=== PATIENT | male | born 1940 | race Caucasian/White ===

== ENCOUNTER 2016-06-26 12:56 | Inpatient (IN) | payer MEDICARE, BC ==
[~2016-06-26] VITALS: Ht 175.3 cm; Wt 86.2 kg
[~2016-06-26 12:56] MED LIST: ALFU10TA10 PO; ATOR80TA PO; BACL10TA PO; CARV3.122 PO; LEVO100T9 PO; OXCA300T PO; TICA90TA PO
[2016-06-26 14:01] LABS: BASOPHILS % (AUTO) 0.8 % (0.0-2.0); DIFF TOTAL % 100 %; EOSINOPHILS # (AUTO) 0.2 /CMM (0.0-0.7); HEMATOCRIT 38 % (39-51); HEMOGLOBIN 12.7 g/dL (13.5-17.5); LYMPHOCYTES # (AUTO) 1.2 /CMM (0.8-4.8); LYMPHOCYTES % (AUTO) 22.1 % (20.0-44.0); MEAN CORPUSCULAR HEMOGLOBIN 32 PG (26.0-33.0); MEAN CORPUSCULAR HGB CONC 33 g/dl (31.0-36.0); MEAN CORPUSCULAR VOLUME 97 fL (80-96); MONOCYTES # (AUTO) 0.3 /CMM (0.1-1.30); MONOCYTES % (AUTO) 6.5 % (2.0-12.0); NEUTROPHILS # (AUTO) 3.5 /CMM (1.8-8.9); NEUTROPHILS % (AUTO) 67.6 % (43.0-81.0); PLATELET COUNT (AUTO) 193 /CMM (150-450); RED BLOOD CELL COUNT(AUTO) 3.94 MIL/uL (4.5-6.0); WHITE BLOOD COUNT (AUTO) 5.2 K/uL (4.3-11.0)
[2016-06-26 14:14] LABS: ANION GAP 10 (5-14); CALCIUM, SERUM 9.3 mg/dL (8.5-10.1); CARBON DIOXIDE 30 mmol/L (21-32); CHLORIDE 101 mmol/L (98-107); GLUCOSE 114 mg/dL (74-106); POTASSIUM 3.8 mmol/L (3.5-5.1); SODIUM SERUM 138 mmol/L (136-145); UREA NITROGEN, BLOOD 24 mg/dL (7-18)
[2016-06-26 14:17] LABS: INR 0.98 (0.87-1.13); PROTHROMBIN TIME 10.3 SECS (9.5-12.7)
[2016-06-26 14:20] LABS: ALANINE AMINOTRANSFERASE 29 U/L (12-78); ALBUMIN 3.5 g/dL (3.4-5.0); ASPARTATE AMINOTRANSFERASE 23 U/L (15-37); BILIRUBIN,DIRECT 0.1 mg/dL (0.0-0.2); BILIRUBIN,TOTAL 0.3 mg/dL (0.2-1.0); INDIRECT BILIRUBIN 0.2 mg/dL (0.0-1.1); TOTAL PROTEIN, SERUM 8.2 g/dL (6.4-8.2)
[2016-06-26 14:22] LABS: TROPONIN I < 0.017 ng/mL (0.00-0.056)
[2016-06-26 14:51] LABS: LACTIC ACID 1.4 mmol/L (0.4-2.0)
[2016-06-26] MEDS ORDERED: VANCOMYCIN 1 GM in IV D5W 250 ML IV ONE (15:30)
[2016-06-26] MEDS ORDERED: hydrALAZINE HCL 25 MG TABLET PO PRN (15:30)
[2016-06-26] MEDS ORDERED: VANCOMYCIN 1 GM in IV D5W 250 ML IV SCH (16:30)
[2016-06-26] MEDS ORDERED: FEE PK DOSING 1 MIN EA MC ONE (17:27)
[2016-06-26 17:30] VITALS: BP 157/71
[2016-06-26] MEDS ORDERED: OXCARBAZEPINE 150 MG TABLET PO SCH (17:30)
[2016-06-26] MEDS ORDERED: IV NS 0.9% 1,000 ML IV PRN (17:31)
[2016-06-26] MEDS: CEFTRIAXONE 1 G in IV D5W 50 ML IV SCH (17:50)
[2016-06-26] MEDS: BACLOFEN (10 MG) 10 MG TABLET PO SCH (17:50)
[2016-06-26] MEDS: CARVEDILOL 3.125 MG TABLET PO SCH (17:52)
[2016-06-26] MEDS: TICAGRELOR 90 MG TABLET PO SCH (17:52)
[2016-06-26] MEDS ORDERED: HYDROCODONE/APAP 5/325MG 1 EACH TABLET PO PRN (18:00)
[2016-06-26] MEDS ORDERED: ZOLPIDEM TARTRATE 5 MG TABLET PO PRN (18:00)
[2016-06-26] MEDS ORDERED: ACETAMINOPHEN 325 MG TABLET PO PRN (18:00)
[2016-06-26] MEDS ORDERED: MAG HYDROX/AL HYDROX/SIMETH 30 ML UDC PO PRN (18:00)
[2016-06-26] MEDS ORDERED: ONDANSETRON HCL/PF 4 MG/2 ML VIAL IVP PRN (18:00)
[2016-06-26] MEDS ORDERED: MAGNESIUM HYDROXIDE 30 ML UDC PO PRN (18:00)
[2016-06-26] MEDS ORDERED: Z GUARD REMEDY 2 OZ OINT TP PRN (18:00)
[2016-06-26] MEDS ORDERED: SECONDARY IV SET 1 EA INFUS.SET MC ONE (18:22)
[2016-06-26] MEDS ORDERED: IV SET PRIMARY PUMP SET 1 EA INFUS.SET MC ONE (18:38)
[2016-06-26 20:00] VITALS: BP 105/55
[2016-06-26] MEDS ORDERED: Alfuzosin Hcl 10 MG PO SCH (20:00)
[2016-06-26] MEDS: OXCARBAZEPINE 150 MG TABLET PO SCH (23:33)
[2016-06-27] VITALS (7 sets, daily range): BP systolic 118–140; BP diastolic 56–68
[2016-06-27] MEDS ORDERED: SECONDARY IV SET 1 EA INFUS.SET MC ONE ×2 (05:54→17:03)
[2016-06-27] MEDS: VANCOMYCIN 1.25 GM in IV D5W 500 ML IV SCH ×2 (05:55→18:37)
[2016-06-27] MEDS: LEVOTHYROXINE SODIUM 100 MCG TABLET PO SCH (06:37)
[2016-06-27 07:33] LABS: CALCIUM, SERUM 8.5 mg/dL (8.5-10.1); PHOSPHORUS 2.9 mg/dL (2.5-4.9); POTASSIUM 3.9 mmol/L (3.5-5.1)
[2016-06-27 07:41] LABS: BASOPHILS # (AUTO) 0.1 /CMM (0.0-0.2); BASOPHILS % (AUTO) 1.4 % (0.0-2.0); DIFF TOTAL % 100 %; EOSINOPHILS # (AUTO) 0.2 /CMM (0.0-0.7); EOSINOPHILS % (AUTO) 4.2 % (0.0-6.0); HEMATOCRIT 34 % (39-51); HEMOGLOBIN 11.6 g/dL (13.5-17.5); LYMPHOCYTES # (AUTO) 1.4 /CMM (0.8-4.8); LYMPHOCYTES % (AUTO) 26.8 % (20.0-44.0); MEAN CORPUSCULAR HEMOGLOBIN 33 PG (26.0-33.0); MEAN CORPUSCULAR HGB CONC 34 g/dl (31.0-36.0); MEAN CORPUSCULAR VOLUME 97 fL (80-96); MONOCYTES # (AUTO) 0.4 /CMM (0.1-1.30); MONOCYTES % (AUTO) 8.1 % (2.0-12.0); NEUTROPHILS # (AUTO) 3.2 /CMM (1.8-8.9); NEUTROPHILS % (AUTO) 59.5 % (43.0-81.0); PLATELET COUNT (AUTO) 182 /CMM (150-450); RED BLOOD CELL COUNT(AUTO) 3.52 MIL/uL (4.5-6.0); WHITE BLOOD COUNT (AUTO) 5.3 K/uL (4.3-11.0)
[2016-06-27] MEDS: PANTOPRAZOLE 40 MG TABLET.DR PO SCH (08:20)
[2016-06-27] MEDS: BACLOFEN (10 MG) 10 MG TABLET PO SCH ×2 (08:20→17:14)
[2016-06-27] MEDS: OXCARBAZEPINE 150 MG TABLET PO SCH ×2 (08:24→22:54)
[2016-06-27] MEDS: TICAGRELOR 90 MG TABLET PO SCH ×2 (08:24→17:14)
[2016-06-27] MEDS: CARVEDILOL 3.125 MG TABLET PO SCH ×2 (08:25→17:14)
[2016-06-27] MEDS: CEFTRIAXONE 1 G in IV D5W 50 ML IV SCH (17:14)
[2016-06-27] MEDS: Z GUARD REMEDY 2 OZ OINT TP SCH (17:15)
[2016-06-27] MEDS: ATORVASTATIN 40 MG TABLET PO SCH (21:12)
[2016-06-27] MEDS ORDERED: PSEUDOEPHEDRINE HCL 30 MG TABLET ONE (23:04)
[2016-06-28] MEDS: PSEUDOEPHEDRINE HCL 30 MG TABLET PO PRN ×2 (00:04→10:01)
[2016-06-28 01:40] VITALS: BP 139/64
[2016-06-28 04:00] VITALS: BP 156/72
[2016-06-28 05:12] VITALS: BP 156/72
[2016-06-28 06:02] LABS: BASOPHILS # (AUTO) 0.1 /CMM (0.0-0.2); BASOPHILS % (AUTO) 0.8 % (0.0-2.0); DIFF TOTAL % 100 %; EOSINOPHILS # (AUTO) 0.3 /CMM (0.0-0.7); EOSINOPHILS % (AUTO) 3.8 % (0.0-6.0); HEMATOCRIT 35 % (39-51); HEMOGLOBIN 11.7 g/dL (13.5-17.5); LYMPHOCYTES # (AUTO) 1.6 /CMM (0.8-4.8); LYMPHOCYTES % (AUTO) 23.1 % (20.0-44.0); MEAN CORPUSCULAR HEMOGLOBIN 33 PG (26.0-33.0); MEAN CORPUSCULAR HGB CONC 34 g/dl (31.0-36.0); MEAN CORPUSCULAR VOLUME 97 fL (80-96); MONOCYTES # (AUTO) 0.5 /CMM (0.1-1.30); MONOCYTES % (AUTO) 7.2 % (2.0-12.0); NEUTROPHILS # (AUTO) 4.4 /CMM (1.8-8.9); NEUTROPHILS % (AUTO) 65.1 % (43.0-81.0); PLATELET COUNT (AUTO) 166 /CMM (150-450); RED BLOOD CELL COUNT(AUTO) 3.59 MIL/uL (4.5-6.0); WHITE BLOOD COUNT (AUTO) 6.8 K/uL (4.3-11.0)
[2016-06-28 06:21] LABS: CALCIUM, SERUM 8.5 mg/dL (8.5-10.1); PHOSPHORUS 3.2 mg/dL (2.5-4.9); POTASSIUM 4.1 mmol/L (3.5-5.1)
[2016-06-28] MEDS: VANCOMYCIN 1.25 GM in IV D5W 500 ML IV SCH (07:02)
[2016-06-28 08:00] VITALS: BP 141/70
[2016-06-28] MEDS: Z GUARD REMEDY 2 OZ OINT TP SCH ×2 (09:00→17:00)
[2016-06-28] MEDS: PANTOPRAZOLE 40 MG TABLET.DR PO SCH (10:00)
[2016-06-28] MEDS: LEVOTHYROXINE SODIUM 100 MCG TABLET PO SCH (10:01)
[2016-06-28] MEDS: TICAGRELOR 90 MG TABLET PO SCH ×2 (10:01→17:00)
[2016-06-28] MEDS: CARVEDILOL 3.125 MG TABLET PO SCH ×2 (10:01→17:00)
[2016-06-28] MEDS: OXCARBAZEPINE 150 MG TABLET PO SCH ×2 (10:02→23:33)
[2016-06-28] MEDS: BACLOFEN (10 MG) 10 MG TABLET PO SCH ×2 (10:02→17:00)
[2016-06-28 16:00] VITALS: BP 140/71
[2016-06-28] MEDS: CEFTRIAXONE 1 G in IV D5W 50 ML IV SCH (17:00)
[2016-06-28] MEDS ORDERED: VANCOMYCIN 1 GM in IV D5W 250 ML IV SCH (18:00)
[2016-06-28 20:00] VITALS: BP 137/73
[2016-06-28] MEDS: ATORVASTATIN 40 MG TABLET PO SCH (22:12)
[2016-06-29] MEDS ORDERED: CEFTRIAXONE 1 G in IV D5W 50 ML IV SCH ×2
[2016-06-29] MEDS ORDERED: CEFTRIAXONE 1 G VIAL ONE (00:27)
[2016-06-29] MEDS ORDERED: SECONDARY IV SET 1 EA INFUS.SET MC ONE ×2 (00:27→01:47)
[2016-06-29] MEDS ORDERED: IV SET PRIMARY PUMP SET 1 EA INFUS.SET MC ONE (00:27)
[2016-06-29] MEDS ORDERED: IV D5W 50 ML IV ONE (00:28)
[2016-06-29] MEDS ORDERED: IV NS 0.9% 250 ML IV ONE (00:28)
[2016-06-29] MEDS: VANCOMYCIN 1 GM in IV D5W 250 ML IV SCH ×2 (01:53→13:38)
[2016-06-29 04:00] VITALS: BP 128/65
[2016-06-29 04:50] VITALS: BP 128/65
[2016-06-29 07:09] LABS: CALCIUM, SERUM 8.4 mg/dL (8.5-10.1); CREATININE 0.9 mg/dL (0.6-1.3); POTASSIUM 3.6 mmol/L (3.5-5.1)
[2016-06-29] MEDS: PANTOPRAZOLE 40 MG TABLET.DR PO SCH (07:30)
[2016-06-29 08:00] VITALS: BP 106/57
[2016-06-29] MEDS: LEVOTHYROXINE SODIUM 100 MCG TABLET PO SCH (08:32)
[2016-06-29] MEDS: BACLOFEN (10 MG) 10 MG TABLET PO SCH (08:46)
[2016-06-29 08:51] VITALS: BP 110/64
[2016-06-29] MEDS: TICAGRELOR 90 MG TABLET PO SCH (08:51)
[2016-06-29] MEDS: Z GUARD REMEDY 2 OZ OINT TP SCH (08:51)
[2016-06-29] MEDS: CARVEDILOL 3.125 MG TABLET PO SCH (08:51)
[2016-06-29] MEDS: OXCARBAZEPINE 150 MG TABLET PO SCH (11:00)
== END 2016-06-29 18:34 | disposition home or self-care (01) | DRG 603 ==
LOC: ER 12:58 → TELE1 16:23 → MEDSG1 06-27 10:26
PROVIDERS: ADMIT Internal Medicine; ATTEND Internal Medicine
PROC: 02HV33Z Insertion of Infusion Device into Superior Vena Cava, Percutaneous Approach (ICD-10-PCS; principal; 2016-06-28)
PROC: B548ZZA Ultrasonography of Superior Vena Cava, Guidance (ICD-10-PCS; 2016-06-28)
DX: L03.115 Cellulitis of right lower limb (principal); G50.0 Trigeminal neuralgia; G35 Multiple sclerosis; E03.9 Hypothyroidism, unspecified; M51.36 Other intervertebral disc degeneration, lumbar region; Z95.1 Presence of aortocoronary bypass graft; I25.10 Atherosclerotic heart disease of native coronary artery without angina pectoris; N40.0 Benign prostatic hyperplasia without lower urinary tract symptoms; G89.29 Other chronic pain; M54.5 Low back pain; I73.9 Peripheral vascular disease, unspecified; J44.9 Chronic obstructive pulmonary disease, unspecified; Z95.5 Presence of coronary angioplasty implant and graft; Z98.1 Arthrodesis status; I10 Essential (primary) hypertension
CPT/HCPCS: 36415; 36569; 71010-TC; 80048-TC; 80061-TC; 80076-TC; 80202-TC; 83605-TC; 83735-TC; 84100-TC; 84484-TC; 85025-TC; 85730-TC; 86850-TC; 86901; 87040-TC; 87081-TC; 93925-TC; 93970-TC; 97001-TC; 97003-TC; A4606; J0696; J3370; J7030; J7050; J7060; Z7610

== ENCOUNTER 2016-07-10 12:43 | Outpatient (CLI) | payer MEDICARE, BC | END 2016-07-10 23:59 | disposition home health service (06) | LOC: WOU 12:43 | PROVIDERS: ATTEND Podiatrist Foot & Ankle Surgery | DX: L03.115 Cellulitis of right lower limb (principal); I25.10 Atherosclerotic heart disease of native coronary artery without angina pectoris; I10 Essential (primary) hypertension; Z95.1 Presence of aortocoronary bypass graft; Z87.891 Personal history of nicotine dependence; E03.9 Hypothyroidism, unspecified; G50.0 Trigeminal neuralgia; G35 Multiple sclerosis; R60.0 Localized edema; I70.201 Unspecified atherosclerosis of native arteries of extremities, right leg | CPT/HCPCS: G0463 ==

== ENCOUNTER 2016-07-31 13:00 | Outpatient (CLI) | payer MEDICARE, BC | END 2016-07-31 23:59 | disposition home or self-care (01) | LOC: WOU 13:00 | PROVIDERS: ATTEND Podiatrist Foot & Ankle Surgery | DX: I83.893 Varicose veins of bilateral lower extremities with other complications (principal); I25.10 Atherosclerotic heart disease of native coronary artery without angina pectoris; I10 Essential (primary) hypertension; Z95.1 Presence of aortocoronary bypass graft; G35 Multiple sclerosis; E03.9 Hypothyroidism, unspecified; G50.0 Trigeminal neuralgia; Z98.1 Arthrodesis status | CPT/HCPCS: G0463 ==

== ENCOUNTER 2016-10-30 10:58 | Inpatient (IN) | payer MEDICARE, OTHER ==
[~2016-10-30] VITALS: Ht 182.9 cm; Wt 85.9 kg
--- NOTE | 2016-10-30 11:16 | NUR ---
PT TO ER BED 12. C/O RUE AND BLE PAIN REDNESS AND SWELLING X 10 DAYS WORST X 2 DAYS. PT IS ALSO C/O SOB. DENIES CHEST PAIN. GOWNED AND PLACED ON MONITOR. VSS. 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 AWAITING MD GAMBOA.
--- NOTE | 2016-10-30 11:17 | NUR ---
DR COX AT BEDSIDE FOR EVAL.
[2016-10-30] MEDS ORDERED: PIPERACILLIN /TAZOBACTAM 3.375 G in IV D5W 50 ML IV ONE (11:30)
[2016-10-30] MEDS ORDERED: NITROGLYCERIN PACKET 1 GM PACKET TD ONE (11:30)
[2016-10-30] MEDS ORDERED: VANCOMYCIN 1 GM in IV D5W 250 ML IV ONE (11:30)
[2016-10-30] MEDS ORDERED: IV SET PRIMARY PUMP SET 1 EA INFUS.SET MC ONE ×3 (11:35→21:41)
--- NOTE | 2016-10-30 11:35 | NUR ---
IV LINE STARTED BLOOD DRAWN AND SENT TO LAB.
--- NOTE | 2016-10-30 11:39 | NUR ---
RADIOLOGY AT BEDSIDE FOR CHEST XRAY.
[2016-10-30 11:44] LABS: BASOPHILS # (AUTO) 0.5 /CMM (0.0-0.2); BASOPHILS % (AUTO) 4.1 % (0.0-2.0); EOSINOPHILS % (AUTO) 0.2 % (0.0-6.0); HEMATOCRIT 38 % (39-51); HEMOGLOBIN 12.5 g/dL (13.5-17.5); LYMPHOCYTES # (AUTO) 2.4 /CMM (0.8-4.8); LYMPHOCYTES % (AUTO) 18.4 % (20.0-44.0); MEAN CORPUSCULAR HEMOGLOBIN 32 PG (26.0-33.0); MEAN CORPUSCULAR HGB CONC 33 g/dl (31.0-36.0); MEAN CORPUSCULAR VOLUME 97 fL (80-96); MONOCYTES % (AUTO) 8.2 % (2.0-12.0); NEUTROPHILS # (AUTO) 8.9 /CMM (1.8-8.9); NEUTROPHILS % (AUTO) 69.1 % (43.0-81.0); PLATELET COUNT (AUTO) 233 /CMM (150-450); RDW COEFFICIENT OF VARIATION 13.5 (11.5-15.0); RED BLOOD CELL COUNT(AUTO) 3.91 MIL/uL (4.5-6.0); WHITE BLOOD COUNT (AUTO) 12.8 K/uL (4.3-11.0)
[2016-10-30] MEDS ORDERED: HYDROMORPHONE 1 MG/1 ML DISP.SYRIN ONE (11:48)
[2016-10-30] MEDS ORDERED: NITROGLYCERIN PACKET 1 GM PACKET ONE (11:48)
[2016-10-30 11:53] LABS: CALCIUM, SERUM 9.1 mg/dL (8.5-10.1); CARBON DIOXIDE 28 mmol/L (21-32); CHLORIDE 103 mmol/L (98-107); GLUCOSE 107 mg/dL (74-106); POTASSIUM 3.6 mmol/L (3.5-5.1); SODIUM SERUM 138 mmol/L (136-145); UREA NITROGEN, BLOOD 21 mg/dL (7-18)
[2016-10-30 11:58] LABS: INR 0.94 (0.87-1.13); PROTHROMBIN TIME 9.8 SECS (9.5-12.7)
[2016-10-30] MEDS ORDERED: ONDANSETRON HCL/PF 4 MG/2 ML VIAL IVP ONE (12:00)
[2016-10-30] MEDS ORDERED: HYDROMORPHONE INJ 2 MG/ML DISP.SYRIN IV ONE (12:00)
[2016-10-30 12:01] LABS: TROPONIN I < 0.017 ng/mL (0.00-0.056)
[2016-10-30] MEDS ORDERED: ONDANSETRON HCL/PF 4 MG/2 ML VIAL ONE (12:05)
[2016-10-30 12:06] LABS: ALANINE AMINOTRANSFERASE 36 U/L (12-78); ALBUMIN 3.3 g/dL (3.4-5.0); ALKALINE PHOSPHATASE 87 U/L (46-116); ASPARTATE AMINOTRANSFERASE 25 U/L (15-37); B-TYPE NATRIURETIC PEPTIDE 900 PG/ML (0-125); BILIRUBIN,DIRECT 0.1 mg/dL (0.0-0.2); BILIRUBIN,TOTAL 0.4 mg/dL (0.2-1.0); TOTAL PROTEIN, SERUM 7.6 g/dL (6.4-8.2)
--- NOTE | 2016-10-30 12:15 | NUR ---
PAGED HAND BOX FOLDER PANEL FANNY BAIN NP
[2016-10-30] MEDS ORDERED: FUROSEMIDE 20 MG/2 ML VIAL IV ONE (12:30)
[2016-10-30] MEDS ORDERED: INTE30SY IM (12:30)
[2016-10-30] MEDS ORDERED: FINA5TAB11 PO (12:30)
[2016-10-30] MEDS ORDERED: FUROSEMIDE 20 MG/2 ML VIAL ONE (12:42)
[2016-10-30] MEDS ORDERED: MAG HYDROX/AL HYDROX/SIMETH 30 ML UDC PO PRN (13:00)
[2016-10-30] MEDS ORDERED: MAGNESIUM HYDROXIDE 30 ML UDC PO PRN (13:00)
[2016-10-30] MEDS ORDERED: ONDANSETRON HCL/PF 4 MG/2 ML VIAL IVP PRN (13:00)
[2016-10-30] MEDS ORDERED: INTERFERON BETA 30 MCG IM SCH (13:00)
[2016-10-30] MEDS ORDERED: Z GUARD REMEDY 2 OZ OINT TP PRN (13:00)
[2016-10-30] MEDS ORDERED: ACETAMINOPHEN 325 MG TABLET PO PRN (13:00)
--- NOTE | 2016-10-30 13:00 | NUR ---
REPAGED FRANCY LEWIS
--- NOTE | 2016-10-30 13:03 | NUR ---
REPORT GIVEN TO REJI. PT AWAITING TRANSFER TO FLOOR.
[2016-10-30 14:00] VITALS: BP 110/82
--- NOTE | 2016-10-30 14:00 | NUR ---
ms rn received a 76 year old patient, from er, new admission w/ dx of chf, alert, oriented x4,not in any form of distress, respirations even and unlabored,no sob noted, lungs are clear,abdomen soft,positive bowel sounds, denies pain at this time, will monitor patient's condition.
[2016-10-30] MEDS ORDERED: FEE PK DOSING 1 MIN EA MC ONE (14:44)
[2016-10-30 16:00] VITALS: BP 130/76
--- NOTE | 2016-10-30 16:30 | NUR ---
ms rn was seen by dr. jabari delgado/ orders made and carried out.
[2016-10-30] MEDS: BACLOFEN (10 MG) 10 MG TABLET PO SCH (18:20)
[2016-10-30] MEDS: PIPERACILLIN /TAZOBACTAM 3.375 G in IV D5W 50 ML IV SCH (18:20)
[2016-10-30] MEDS: TICAGRELOR 90 MG TABLET PO SCH (18:20)
[2016-10-30] MEDS: MORPHINE SULFATE INJ 2 MG/ML DISP.SYRIN IV PRN (18:21)
--- NOTE | 2016-10-30 18:43 | NUR ---
ms rn on bed, no distress noted,all needs attended.
--- NOTE | 2016-10-30 19:30 | NUR ---
MS/RN NOTES RECEIVED PT. SITTING UP IN BED. AWAKE, ALERT AND ORIENTED X4. BREATHING EVEN AND UNLABORED ON ROOM AIR. NO SOB OR RESPIRATORY DISTRESS NOTED AT THIS TIME. PT. COMPLAINING OF PAIN 8/10 IN HIS RIGHT ARM AND RIGHT LEG. PT. STATES IT IS CHRONIC PAIN AND THAT HE HAS SCIATICA. PT. RECENTLY RECEIVED PAIN MEDICATION BY DAYSHIFT NURSE. WILL CONTINUE TO MONITOR PAIN AND ADMINISTER PAIN MEDICATION ORDERED. BED IN LOWEST POSITION, CALL LIGHT WITHIN REACH, WILL CONTINUE TO MONITOR.
[2016-10-30 20:26] VITALS: BP 104/58
[2016-10-30] MEDS: HYDROCODONE/APAP 5/325MG 1 EACH TABLET PO PRN (20:44)
[2016-10-30] MEDS: OXCARBAZEPINE 150 MG TABLET PO SCH (20:44)
[2016-10-30] MEDS ORDERED: IV NS 0.9% 100 ML IV ONE (21:41)
[2016-10-30] MEDS ORDERED: SECONDARY IV SET 1 EA INFUS.SET MC ONE (21:41)
[2016-10-30] MEDS: TAMSULOSIN 0.4 MG CAP.SR.24H PO SCH (21:51)
[2016-10-30] MEDS: ATORVASTATIN 40 MG TABLET PO SCH (21:52)
[2016-10-31] MEDS: PIPERACILLIN /TAZOBACTAM 3.375 G in IV D5W 50 ML IV SCH ×4 (00:17→19:06)
[2016-10-31] MEDS ORDERED: SECONDARY IV SET 1 EA INFUS.SET MC ONE (01:17)
[2016-10-31] MEDS: HYDROCODONE/APAP 5/325MG 1 EACH TABLET PO PRN ×2 (01:23→14:22)
[2016-10-31] MEDS: VANCOMYCIN 1 GM in IV D5W 250 ML IV SCH ×3 (01:23→23:21)
[2016-10-31] MEDS: MORPHINE SULFATE INJ 2 MG/ML DISP.SYRIN IV PRN ×4 (04:35→23:23)
[2016-10-31 06:49] LABS: BASOPHILS % (AUTO) 0.3 % (0.0-2.0); EOSINOPHILS # (AUTO) 0.1 /CMM (0.0-0.7); HEMATOCRIT 37 % (39-51); HEMOGLOBIN 12.5 g/dL (13.5-17.5); LYMPHOCYTES # (AUTO) 1.4 /CMM (0.8-4.8); LYMPHOCYTES % (AUTO) 12.4 % (20.0-44.0); MEAN CORPUSCULAR HEMOGLOBIN 33 PG (26.0-33.0); MEAN CORPUSCULAR HGB CONC 34 g/dl (31.0-36.0); MEAN CORPUSCULAR VOLUME 96 fL (80-96); MONOCYTES # (AUTO) 0.9 /CMM (0.1-1.30); MONOCYTES % (AUTO) 7.5 % (2.0-12.0); NEUTROPHILS % (AUTO) 78.8 % (43.0-81.0); PLATELET COUNT (AUTO) 241 /CMM (150-450); RDW COEFFICIENT OF VARIATION 13.9 (11.5-15.0); RED BLOOD CELL COUNT(AUTO) 3.81 MIL/uL (4.5-6.0); WHITE BLOOD COUNT (AUTO) 11.5 K/uL (4.3-11.0)
--- NOTE | 2016-10-31 06:50 | NUR ---
MS/RN NOTES PT. LYING IN BED RESTING. BREATHING EVEN AND UNLABORED ON ROOM AIR. NO SOB OR RESPIRATORY DISTRESS OR COMPLAINTS OF PAIN NOTED AT THIS TIME. PT. WITH LEFT AC 18 GAUGE IV SALINE LOCK PRESENT, PATENT AND INTACT. ALL PT. NEEDS MET. BED IN LOWEST POSITION, CALL LIGHT WITHIN REACH, WILL ENDORSE TO DAYSHIFT NURSE FOR CONTINUITY OF CARE.
[2016-10-31 07:08] LABS: THYROID STIMULATING HORMONE 2.436 uIU/mL (0.358-3.74)
[2016-10-31 07:18] LABS: CALCIUM, SERUM 8.7 mg/dL (8.5-10.1); CREATININE 1.2 mg/dL (0.6-1.3); POTASSIUM 3.9 mmol/L (3.5-5.1)
[2016-10-31 08:00] VITALS: BP_SYST 121; BP_DIAS 70; BP_DIAS 76
--- NOTE | 2016-10-31 08:00 | NUR ---
MS/RN AM NOTES RECEIVED PT. SITTING UP IN BED. AWAKE, ALERT AND ORIENTED X4. BREATHING EVEN AND UNLABORED ON ROOM AIR. NO SOB OR RESPIRATORY DISTRESS NOTED AT THIS TIME. PT. COMPLAINING OF PAIN 8/10 IN HIS RIGHT ARM AND RIGHT LEG. PT. STATES IT IS CHRONIC PAIN AND THAT HE HAS SCIATICA. WILL GIVE MSO4 3 MG IV PRN WITH AM MEDS.WILL CONTINUE TO MONITOR PAIN AND ADMINISTER PAIN MEDICATION ORDERED. BED IN LOWEST POSITION, CALL LIGHT WITHIN REACH, WILL CONTINUE TO MONITOR.
[2016-10-31] MEDS: PANTOPRAZOLE 40 MG TABLET.DR PO SCH (08:20)
[2016-10-31] MEDS: LEVOTHYROXINE SODIUM 100 MCG TABLET PO SCH (08:21)
[2016-10-31] MEDS: BACLOFEN (10 MG) 10 MG TABLET PO SCH ×2 (08:22→16:36)
[2016-10-31] MEDS: ASPIRIN 81 MG TAB.CHEW PO SCH (08:22)
[2016-10-31] MEDS: FINASTERIDE (5 MG) 5 MG TABLET PO SCH (08:23)
[2016-10-31] MEDS: TICAGRELOR 90 MG TABLET PO SCH ×2 (08:24→16:37)
[2016-10-31] MEDS: OXCARBAZEPINE 150 MG TABLET PO SCH ×2 (08:26→21:18)
[2016-10-31] MEDS ORDERED: Medication Not On Formulary EA (Alfuzosin Hcl 10 MG) PO SCH (09:00)
--- NOTE | 2016-10-31 11:32 | NUR ---
WOUND CARE CONSULT: PT PRESENTS WITH VERY RED AND SWOLLEN RT ARM, PRESENT ON ADMISSION. LEFT ARM SKIN TEAR HAS TRANSPARENT DSG. PT STATES IS AMBULATORY AND CONTINENT. WILL SEE PRN. SIERRA IN AGREEMENT WITH PLAN OF CARE. Addendum: 10/31/16 at 1134 by [facility] WNDNU Amended: Links added.
--- NOTE | 2016-10-31 12:00 | NUR ---
PENDING ADMINISTRATION OF ZOSYN IV DUE TO STILL ONGOING VANCO IV
--- NOTE | 2016-10-31 12:42 | NUR ---
ms rn notes Dr. Noriega came seen and examined the patient and order MRI of the right elbow without contrast to evaluate for abscess. All orders carried out and noted. Will continue to monitor accordingly.
--- NOTE | 2016-10-31 14:24 | NUR ---
PT WENT DOWN FOR MRI PROCEDURE OF ELBOW TO EVAL ABSCESS WITH STABLE V/S.WILL CONTINUE VANCO IV ATB SOON HE COMES BACK.
--- NOTE | 2016-10-31 15:30 | NUR ---
PT WAS BROUGHT BACK FROM MRI WITH THE PROCEDURE UNDONE DUE TO PT C/O SEVERE RUE PAIN AND UNABLE TO STRETCH HIS ARM STRAIGHT.NORCO WAS GIVEN EARLIER AND IS NOT YET DUE FOR MORPHINE 3MG IV PRN.
[2016-10-31 16:00] VITALS: BP 133/71
--- NOTE | 2016-10-31 17:55 | NUR ---
PT WENT DOWN FOR MRI PROCEDURE OF RT ELBOW (2ND ATTEMPT)AND GIVEN MORPHINE 3MG IV PRN FOR PAIN.
--- NOTE | 2016-10-31 19:03 | NUR ---
PT CAME BACK FOR MRI OF RT ELBOW BUT ABLE TO DO PENITENTIARY MRI DUE TO SEVERE PAIN IN STRETCHING HIS RT ARM INSPITE OF MSO4 3 MG IV GIVEN PRIOR TO BEING BROUGHT DOWN TO MRI.
--- NOTE | 2016-10-31 19:20 | NUR ---
PT SLEEPING COMFORTABLY AND SNORING.CALL LIGHT PLACED WITHIN REACH.
--- NOTE | 2016-10-31 19:55 | NUR ---
MS RN INITIAL NOTES: RECEIVED REPORT FROM EAMON Wright PT IN BED, AWAKE, A/O X3, ON ROOM AIR RESPIRATION EVEN AND UNLABORED,DENIES ANY PAIN OR DISCOMFORT AT THIS TIME, PT HAS LEFT HAND IV PATENT AND FLUSHING WELL, ON HL. PT REFUSING FOR MRI ON RIGHT ELBOW HE STATED HE'S UNABLE TO LIE FLAT AND HE PREFERRED TO HAVE IT DONE STANDING OR SITTING. SAFETY PRECAUTIONS FOR FALL INITIATED CALL LIGHT IN REACH, WILL CONTINUE TO MONITOR
[2016-10-31 20:00] VITALS: BP 119/69
--- NOTE | 2016-10-31 20:30 | NUR ---
SCD: PT REFUSED SCD, HE STATED HE DOESN'T NEED IT AND CAUSING DISCOMFORT IN HIS LEGS, EDUCATION PROVIDED TO THE PT REGARDING IMPORTANCE RISK AND BENEFITS
[2016-10-31] MEDS: ATORVASTATIN 40 MG TABLET PO SCH (21:18)
[2016-10-31] MEDS: TAMSULOSIN 0.4 MG CAP.SR.24H PO SCH (21:18)
--- NOTE | 2016-10-31 23:24 | NUR ---
MS RN NOTES: PT C/O RIGHT ELBOW PAIN 01/18 REQUESTING FOR MORPHINE, PRN MORPHINE 3MG IVP ADMINISTERED TO THE PT AT THIS TIME, EDUCATE PT REGARDING MEDICATION SIDE EFFECT, WILL CONTINUE TO MONITOR AND REASSESS
[2016-11-01] MEDS ORDERED: IV SET PRIMARY PUMP SET 1 EA INFUS.SET MC ONE (00:25)
[2016-11-01] MEDS ORDERED: IV NS 0.9% 250 ML IV ONE (00:26)
[2016-11-01] MEDS ORDERED: SECONDARY IV SET 1 EA INFUS.SET MC ONE ×2 (00:26→01:03)
[2016-11-01] MEDS: PIPERACILLIN /TAZOBACTAM 3.375 G in IV D5W 50 ML IV SCH ×4 (00:31→18:22)
--- NOTE | 2016-11-01 03:57 | NUR ---
MS RN NOTES: SEEN PT SLEEPING COMFORTABLY, NOT IN ANY DISTRESS WILL CONTINUE TO MONITOR
--- NOTE | 2016-11-01 06:58 | NUR ---
MS RN CLOSING NOTES: PT SITTING ON A CHAIR,REFUSED TO WEAR HOSPITAL GOWN, DENIES ANY PAIN OR DISCOMFORT AT THIS TIME. LEFT HAND IV ACCESS REMAINS PATENT AND FLUSHING WELL, ON HL. VS REM,AINS STABLE, NEEDS ATTENDED, NO UNTOWARD EVENT HAPPENED THROUHOUT THE SHIFT. WILL ENDORSE TO DAY RN FOR ELLA.
[2016-11-01] MEDS ORDERED: KETOROLAC TROMETHAMINE INJ 30 MG/ML VIAL IV PRN (07:30)
[2016-11-01 08:00] VITALS: BP 144/73
--- NOTE | 2016-11-01 08:00 | NUR ---
MS RN OPENING NOTES RECEIVED PT RESTING IN BED. AWAKE, ALERT AND ORIENTED X4. UNLABORED BREATHING, NO RESPIRATORY DISTRESS NOTED AT THIS TIME. PT HAS HEPLOCK ON LEFT HAND, INTACT. BED IN LOWEST POSITION, SAFETY AND FALL PRECAUTIONS INITIATED, CALL LIGHT WITHIN REACH, WILL CONTINUE TO MONITOR.
[2016-11-01 08:09] VITALS: BP 144/73
[2016-11-01] MEDS: LEVOTHYROXINE SODIUM 100 MCG TABLET PO SCH (08:49)
[2016-11-01] MEDS: PANTOPRAZOLE 40 MG TABLET.DR PO SCH (08:49)
[2016-11-01] MEDS: FUROSEMIDE 40 MG TABLET PO SCH (08:50)
[2016-11-01] MEDS: POTASSIUM CHLORIDE 20 MEQ TAB.PRT.SR PO SCH (08:51)
[2016-11-01] MEDS: BACLOFEN (10 MG) 10 MG TABLET PO SCH ×2 (08:53→18:19)
[2016-11-01] MEDS: ASPIRIN 81 MG TAB.CHEW PO SCH (08:54)
[2016-11-01] MEDS: FINASTERIDE (5 MG) 5 MG TABLET PO SCH (08:54)
[2016-11-01] MEDS: OXCARBAZEPINE 150 MG TABLET PO SCH ×2 (08:56→21:23)
[2016-11-01] MEDS: TICAGRELOR 90 MG TABLET PO SCH ×2 (09:45→18:20)
[2016-11-01 11:27] LABS: BASOPHILS % (AUTO) 0.4 % (0.0-2.0); EOSINOPHILS # (AUTO) 0.2 /CMM (0.0-0.7); EOSINOPHILS % (AUTO) 1.6 % (0.0-6.0); HEMATOCRIT 35 % (39-51); HEMOGLOBIN 12.1 g/dL (13.5-17.5); LYMPHOCYTES % (AUTO) 10.1 % (20.0-44.0); MEAN CORPUSCULAR HEMOGLOBIN 33 PG (26.0-33.0); MEAN CORPUSCULAR HGB CONC 35 g/dl (31.0-36.0); MEAN CORPUSCULAR VOLUME 96 fL (80-96); MONOCYTES # (AUTO) 0.7 /CMM (0.1-1.30); MONOCYTES % (AUTO) 6.5 % (2.0-12.0); NEUTROPHILS # (AUTO) 8.3 /CMM (1.8-8.9); NEUTROPHILS % (AUTO) 81.4 % (43.0-81.0); PLATELET COUNT (AUTO) 269 /CMM (150-450); RDW COEFFICIENT OF VARIATION 13.9 (11.5-15.0); RED BLOOD CELL COUNT(AUTO) 3.67 MIL/uL (4.5-6.0); WHITE BLOOD COUNT (AUTO) 10.1 K/uL (4.3-11.0)
[2016-11-01 11:52] LABS: CALCIUM, SERUM 8.9 mg/dL (8.5-10.1); CREATININE 1.1 mg/dL (0.6-1.3); POTASSIUM 3.6 mmol/L (3.5-5.1)
[2016-11-01] MEDS: VANCOMYCIN 1 GM in IV D5W 250 ML IV SCH (13:09)
--- NOTE | 2016-11-01 13:15 | NUR ---
PT.SEEN BY DR MORALES, PT. MANIFESTED FACIAL NUMBNESS AND SLURRED SPEECH. NOTIFIED DR ALCANTARA WITH ORDERS FOR STAT CT SCAN. NEURO ASSESSMENT DONE, NO FACIAL DROOPING, CLEAR SPEECH, STRONG BILAT HAND STUDENT, ALERT AND ORIENTED X4. PT NOTED WITH PINKISH RED URINE OUTPUT IN THE URINAL. DR ALCANTARA MADE AWARE.
[2016-11-01 16:00] VITALS: BP 134/66
[2016-11-01 16:50] VITALS: BP 134/66
--- NOTE | 2016-11-01 17:03 | NUR ---
PT SHOWED TISSUES WITH BLOOD STAINS FROM HIS PENIS.DR ALCANTARA AWARE WITH NO NEW ORDER AND JUST TO CONTINUE TO MONITOR
--- NOTE | 2016-11-01 17:35 | NUR ---
DEBBIE LUCAS CALLED WITH ORDERS TO RESUME PT'S DIET.NOTIFIED DIETARY.
--- NOTE | 2016-11-01 18:25 | NUR ---
PT PASSED OUT ONE SMALL BLOOD CLOT WHILE URINATING IN THE TOILET.DR ALCANTARA AWARE.
--- NOTE | 2016-11-01 18:36 | NUR ---
PT RESTING IN BED DENYING ANY PAIN OR DISTRESS.CALL LIGHT PLACED WITHIN REACH.
--- NOTE | 2016-11-01 19:15 | NUR ---
RN NOTES RECEIVED PT AWAKE, HOB ELEVATED, NO SOB, NOT IN DISTRESS, ON ROOM AIR WITH GOOD SATURATION. PT ALERT AND ORIENTED X3, DENIES ANY PAIN AND DISCOMFORT AT THIS TIME, PAIN ON RIGHT ELBOW ONLY ON MOVEMENT, STILL SWOLLEN AND RED, KEPT ELEVATED ON A PILLOW. LUNGS CLEAR UPON AUSCULTATION. WILL MONITOR PT FOR HEMATURIA PER MORNING RN REPORT, DR ALCANTARA AWARE. IV ACCESS ON LEFT HAND PATENT AND INTACT. SAFETY MEASURES IN PLACE, KEPT BED IN THE LOWEST POSITION, LOCKED, SIDE RAILS UP X2 WITH CALL LIGHT WITHIN REACH. KEPT COMFORTABLE AND ATTENDED. WILL CONTINUE TO MONITOR PT.
[2016-11-01 20:00] VITALS: BP 130/67
[2016-11-01] MEDS: ATORVASTATIN 40 MG TABLET PO SCH (21:23)
[2016-11-01] MEDS: TAMSULOSIN 0.4 MG CAP.SR.24H PO SCH (21:23)
[2016-11-01 22:00] VITALS: BP 130/67
[2016-11-02] MEDS: PIPERACILLIN /TAZOBACTAM 3.375 G in IV D5W 50 ML IV SCH ×5 (00:21→23:14)
[2016-11-02] MEDS: VANCOMYCIN 1 GM in IV D5W 250 ML IV SCH ×3 (00:54→23:57)
--- NOTE | 2016-11-02 03:43 | NUR ---
RN NOTES PT STILL HAVING HEMATURIA WITH BLOOD CLOT NOTED. GABRIELA DOBBS OPS MANAGER MADE AWARE WITH ORDER TO HO0LD BRILINTA AND CHECK CBC IN AM. PT MADE AWARE. NOTED AND CARRIED OUT. WILL CONTINUE TO MONITOR PT.
--- NOTE | 2016-11-02 06:41 | NUR ---
RN NOTES PT AWAKE, HOB ELEVATED, APPEARS COMFORTABLE IN BED , NO SIGNS OF DISTRESS AND DISCOMFORT NOTED. ON ROOM AIR AND TOLERATED WELL. VITAL SIGNS STABLE, AFEBRILE, NO COMPLAIN OF CHILLS AND PAIN. NO EPISODE OF NAUSEA AND VOMITING. PT STILL HAVING HEMATURIA WITH BLOOD CLOTS, DENIES PAIN WHEN HE URINATES. GABRIELA DOBBS MADE AWARE HOLD BRILINTA AND CBC TODAY. FALL PRECAUTION OBSERVED. ALL DUE MEDS GIVEN. ALL NEEDS MET. WILL ENDORSE TO MORNING RN FOR CONTINUITY OF CARE.
--- NOTE | 2016-11-02 07:54 | NUR ---
MS RN OPENING NOTE PATIENT IS ALERT AND ORIENTED x4. NO PAIN AT THIS TIME. NO SOB OR DISTRESS NOTED. CALL LIGHT WITHIN REACH. SAFETY MEASURES IMPLEMENTED. ABLE TO COMMUNICATE NEEDS. AUTO BODY SERVICE MECHANIC NURSE ENDORSED THAT PATIENT IS HAVING HEMATURIA, MD AWARE. IV INTACT AND PATENT NO REDNESS OR SWELLING. BRP. RIGHT ARM SWELLING, WILL CONTINUE TO MONITOR
[2016-11-02 08:00] VITALS: BP 146/73
[2016-11-02 08:06] LABS: BASOPHILS % (AUTO) 0.2 % (0.0-2.0); EOSINOPHILS # (AUTO) 0.2 /CMM (0.0-0.7); EOSINOPHILS % (AUTO) 2.3 % (0.0-6.0); HEMATOCRIT 37 % (39-51); HEMOGLOBIN 12.5 g/dL (13.5-17.5); LYMPHOCYTES # (AUTO) 1.2 /CMM (0.8-4.8); LYMPHOCYTES % (AUTO) 11.8 % (20.0-44.0); MEAN CORPUSCULAR HEMOGLOBIN 33 PG (26.0-33.0); MEAN CORPUSCULAR HGB CONC 34 g/dl (31.0-36.0); MEAN CORPUSCULAR VOLUME 96 fL (80-96); MONOCYTES # (AUTO) 0.6 /CMM (0.1-1.30); MONOCYTES % (AUTO) 5.7 % (2.0-12.0); NEUTROPHILS # (AUTO) 7.9 /CMM (1.8-8.9); PLATELET COUNT (AUTO) 266 /CMM (150-450); RDW COEFFICIENT OF VARIATION 13.9 (11.5-15.0); RED BLOOD CELL COUNT(AUTO) 3.84 MIL/uL (4.5-6.0); WHITE BLOOD COUNT (AUTO) 9.8 K/uL (4.3-11.0)
[2016-11-02 08:16] LABS: CALCIUM, SERUM 8.7 mg/dL (8.5-10.1); CREATININE 1.2 mg/dL (0.6-1.3); POTASSIUM 3.3 mmol/L (3.5-5.1)
[2016-11-02] MEDS: POTASSIUM CHLORIDE 20 MEQ TAB.PRT.SR PO SCH (08:34)
[2016-11-02] MEDS: PANTOPRAZOLE 40 MG TABLET.DR PO SCH (08:34)
[2016-11-02] MEDS: ASPIRIN 81 MG TAB.CHEW PO SCH (08:34)
[2016-11-02] MEDS: BACLOFEN (10 MG) 10 MG TABLET PO SCH ×2 (08:34→17:32)
[2016-11-02] MEDS: FUROSEMIDE 40 MG TABLET PO SCH (08:34)
[2016-11-02] MEDS: LEVOTHYROXINE SODIUM 100 MCG TABLET PO SCH (08:34)
[2016-11-02] MEDS: OXCARBAZEPINE 150 MG TABLET PO SCH ×2 (08:35→21:19)
[2016-11-02] MEDS: FINASTERIDE (5 MG) 5 MG TABLET PO SCH (08:35)
[2016-11-02] MEDS: ACETAMINOPHEN 325 MG TABLET PO SCH ×3 (11:17→23:41)
--- NOTE | 2016-11-02 14:00 | NUR ---
MS RN NOTE IV SITE BEGAN TO LEAK. IV REMOVED. RESTART ON LEFT THUMB 22G. PATIENT TOLERATED WELL. NO COMPLICATIONS.
[2016-11-02 16:00] VITALS: BP 141/81
--- NOTE | 2016-11-02 18:40 | NUR ---
MS RN CLOSING NOTE PATIENT IS ALERT AND ORIENTED x4. NO PAIN AT THIS TIME. NO SOB OR DISTRESS NOTED. ABLE TO COMMUNICATE NEEDS. IV INTACT AND PATENT NO REDNESS OR SWELLING NOTED. ALL NURSING CARE NEEDS ATTENDED TO. CALL LIGHT WITHIN REACH AT ALL TIMES. SAFETY MEASURES IMPLEMENTED. POSSIBLE DISCHARGE IN THE MORNING. STILL HAS A LITTLE OF HEMATURIA PRESENT. WILL ENDORSE TO RESOURCE DEVELOPMENT DIRECTOR NURSE
--- NOTE | 2016-11-02 19:10 | NUR ---
RN NOTES RECEIVED PT ASLEEP, HOB ELEVATED, NO SIGNS OF DISTRESS AND DISCOMFORT NOTED, ON ROOM AIR WITH GOOD SATURATION. PT STILL WITH SWELLING AND REDNESS ON RIGHT ARM, KEPT ELEVATED ON A PILLOW. LUNGS CLEAR UPON AUSCULTATION. WILL MONITOR PT FOR HEMATURIA PER MORNING RN REPORT. IV ACCESS ON LEFT THUMB INTACT. SAFETY MEASURES IN PLACE, KEPT BED IN THE LOWEST POSITION, LOCKED, SIDE RAILS UP X2 WITH CALL LIGHT WITHIN REACH. KEPT COMFORTABLE AND ATTENDED. WILL CONTINUE TO MONITOR PT.
[2016-11-02 20:00] VITALS: BP 142/77
[2016-11-02] MEDS: TAMSULOSIN 0.4 MG CAP.SR.24H PO SCH (21:20)
[2016-11-02] MEDS: ATORVASTATIN 40 MG TABLET PO SCH (21:21)
[2016-11-02 22:00] VITALS: BP_SYST 135; BP_SYST 142; BP_DIAS 66; BP_DIAS 77
[2016-11-03] MEDS: HYDROCODONE/APAP 5/325MG 1 EACH TABLET PO PRN (05:52)
[2016-11-03] MEDS: PIPERACILLIN /TAZOBACTAM 3.375 G in IV D5W 50 ML IV SCH (05:52)
[2016-11-03 06:41] LABS: BASOPHILS % (AUTO) 0.5 % (0.0-2.0); EOSINOPHILS # (AUTO) 0.3 /CMM (0.0-0.7); EOSINOPHILS % (AUTO) 3.8 % (0.0-6.0); HEMATOCRIT 38 % (39-51); HEMOGLOBIN 12.8 g/dL (13.5-17.5); LYMPHOCYTES # (AUTO) 1.7 /CMM (0.8-4.8); LYMPHOCYTES % (AUTO) 22.2 % (20.0-44.0); MEAN CORPUSCULAR HEMOGLOBIN 33 PG (26.0-33.0); MEAN CORPUSCULAR HGB CONC 34 g/dl (31.0-36.0); MEAN CORPUSCULAR VOLUME 97 fL (80-96); MONOCYTES # (AUTO) 0.5 /CMM (0.1-1.30); MONOCYTES % (AUTO) 6.7 % (2.0-12.0); NEUTROPHILS # (AUTO) 5.1 /CMM (1.8-8.9); NEUTROPHILS % (AUTO) 66.8 % (43.0-81.0); PLATELET COUNT (AUTO) 283 /CMM (150-450); RDW COEFFICIENT OF VARIATION 13.6 (11.5-15.0); RED BLOOD CELL COUNT(AUTO) 3.88 MIL/uL (4.5-6.0); WHITE BLOOD COUNT (AUTO) 7.6 K/uL (4.3-11.0)
[2016-11-03 06:48] LABS: CALCIUM, SERUM 8.9 mg/dL (8.5-10.1); POTASSIUM 3.7 mmol/L (3.5-5.1)
[2016-11-03] MEDS: ACETAMINOPHEN 325 MG TABLET PO SCH (07:01)
--- NOTE | 2016-11-03 07:10 | NUR ---
RN NOTES PT AWAKE, HOB ELEVATED, APPEARS COMFORTABLE IN BED , NO SIGNS OF DISTRESS AND DISCOMFORT NOTED. ON ROOM AIR AND TOLERATED WELL. VITAL SIGNS STABLE, AFEBRILE, NO CHILLS, KEPT PAIN AT TOLERABLE LEVEL. NO EPISODE OF NAUSEA AND VOMITING. PT DENIES DYSURIA WITH CLEAR YELLOW URINE OUTPUT. FALL PRECAUTION OBSERVED. ALL DUE MEDS GIVEN. ALL NEEDS MET. ENDORSED TO MORNING RN FOR CONTINUITY OF CARE.
--- NOTE | 2016-11-03 07:41 | NUR ---
MS RN OPENING NOTE PATIENT IS ALERT AND ORIENTED x4. PATIENT STATES 4/10 PAIN ON LEFT ELBOW, PAIN MEDICATION GIVEN. NO SOB OR DISTRESS NOTED. CALL LIGHT WITHIN REACH. SAFETY MEASURES IMPLEMENTED. ABLE TO COMMUNICATE NEEDS. IV INTACT AND PATENT NO REDNESS OR SWELLING NOTED. WILL CONTINUE TO MONITOR
[2016-11-03 08:00] VITALS: BP 146/31
[2016-11-03] MEDS: LEVOTHYROXINE SODIUM 100 MCG TABLET PO SCH (08:10)
[2016-11-03] MEDS: BACLOFEN (10 MG) 10 MG TABLET PO SCH (08:10)
[2016-11-03] MEDS: POTASSIUM CHLORIDE 20 MEQ TAB.PRT.SR PO SCH (08:10)
[2016-11-03] MEDS: FINASTERIDE (5 MG) 5 MG TABLET PO SCH (08:10)
[2016-11-03] MEDS: PANTOPRAZOLE 40 MG TABLET.DR PO SCH (08:10)
[2016-11-03] MEDS: FUROSEMIDE 40 MG TABLET PO SCH (08:10)
[2016-11-03] MEDS: OXCARBAZEPINE 150 MG TABLET PO SCH (08:13)
--- NOTE | 2016-11-03 12:15 | NUR ---
DISCHARGE NOTE PATIENT IS ALERT AND ORIENTED x4. NO PAIN AT THIS TIME. NO SOB OR DISTRESS NOTED. IV REMOVED, SKIN INTACT AND PATENT. ALL BELONGINGS WITH PATIENT AND ACCOUNTED FOR. DISCHARGE INSTRUCTIONS GIVEN TO PATIENT ABLE TO VERBALIZE INSTRUCTIONS. DAUGHTER RYLIE PICKED UP PATIENT VIA PRIVATE CAR. PRESCRIPTION WITH PATIENT. PERSONAL WALKER WITH PATIENT AND DAUGHTER.
== END 2016-11-03 12:10 | disposition home or self-care (01) | DRG 291 ==
LOC: ER 10:59 → TELE 12:57 → MED 18:40
PROVIDERS: ADMIT Contractor; ATTEND Contractor
DX: I11.0 Hypertensive heart disease with heart failure (principal); N17.0 Acute kidney failure with tubular necrosis; L03.113 Cellulitis of right upper limb; I50.33 Acute on chronic diastolic (congestive) heart failure; E03.9 Hypothyroidism, unspecified; G35 Multiple sclerosis; I25.10 Atherosclerotic heart disease of native coronary artery without angina pectoris; G50.0 Trigeminal neuralgia; I87.2 Venous insufficiency (chronic) (peripheral); R23.4 Changes in skin texture; E11.51 Type 2 diabetes mellitus with diabetic peripheral angiopathy without gangrene; N40.0 Benign prostatic hyperplasia without lower urinary tract symptoms; Z87.891 Personal history of nicotine dependence; R31.0 Gross hematuria; G89.29 Other chronic pain; E78.5 Hyperlipidemia, unspecified; D53.9 Nutritional anemia, unspecified; Z95.1 Presence of aortocoronary bypass graft; M54.30 Sciatica, unspecified side; Z88.1 Allergy status to other antibiotic agents; M70.21 Olecranon bursitis, right elbow; Z82.49 Family history of ischemic heart disease and other diseases of the circulatory system; Z98.1 Arthrodesis status
CPT/HCPCS: 36415; 70450-TC; 71010-TC; 73080-TC; 73221-TC; 76770-TC; 80048-TC; 80061-TC; 80076-TC; 80202-TC; 82746; 83605-TC; 83735-TC; 83880; 84100-TC; 84443-TC; 84484-TC; 85025-TC; 85652-TC; 85730-TC; 86140-TC; 87040-TC; A4606; A6402; J1170; J1940; J2270; J2405; J2543; J3370; J7030; J7050; J7060; Z7610

== ENCOUNTER 2017-12-17 12:02 | Emergency (ER) | payer MEDICARE, OTHER ==
[~2017-12-17] VITALS: Ht 175.3 cm; Wt 92.5 kg
[~2017-12-17 12:02] MED LIST changes: -CARV3.122 PO; +FINA5TAB11 PO; +INTE30SY IM; -TICA90TA PO
--- NOTE | 2017-12-17 12:10 | NUR ---
PRESENTS TO ER C/O ON AND OFF SOB AND NAUSEA SINCE LAST NIGHT. PATIENT IS A/OX 4, BREATHING EVEN AND UNLABORED AT THIS TIME. NO DISTRESS NOTED. PATIENT HAS RIGHT FACIAL SWELLING FROM A PREVIOUS FALL, NO COMPLICATIONS. SAFETY AND COMFORT MEASURSE IN PLACE, VITALS STABLE. AWAITING MD ORDERS.
--- NOTE | 2017-12-17 12:30 | NUR ---
NEW IV STARTED ON RFA, 18G. BLOOD DRAWN AND SENT TO LAB.
[2017-12-17 12:38] LABS: BASOPHILS % (AUTO) 0.7 % (0.0-2.0); EOSINOPHILS % (AUTO) 3.9 % (0.0-6.0); HEMATOCRIT 39 % (39-51); HEMOGLOBIN 13.2 g/dL (13.5-17.5); LYMPHOCYTES # (AUTO) 1.2 /CMM (0.8-4.8); LYMPHOCYTES % (AUTO) 23.7 % (20.0-44.0); MEAN CORPUSCULAR HEMOGLOBIN 33 PG (26.0-33.0); MEAN CORPUSCULAR HGB CONC 34 g/dl (31.0-36.0); MEAN CORPUSCULAR VOLUME 97 fL (80-96); MONOCYTES # (AUTO) 0.4 /CMM (0.1-1.30); MONOCYTES % (AUTO) 8.7 % (2.0-12.0); NEUTROPHILS # (AUTO) 3.2 /CMM (1.8-8.9); PLATELET COUNT (AUTO) 159 /CMM (150-450); RDW COEFFICIENT OF VARIATION 12.7 (11.5-15.0)
[2017-12-17 12:51] LABS: CALCIUM, SERUM 9.6 mg/dL (8.5-10.1); CARBON DIOXIDE 27 mmol/L (21-32); CHLORIDE 96 mmol/L (98-107); GLUCOSE 112 mg/dL (74-106); POTASSIUM 4.3 mmol/L (3.5-5.1); SODIUM SERUM 127 mmol/L (136-145); UREA NITROGEN, BLOOD 13 mg/dL (7-18)
[2017-12-17 12:54] LABS: INR 1.42 (0.85-1.15)
[2017-12-17 12:57] LABS: ALANINE AMINOTRANSFERASE 39 U/L (12-78); ALBUMIN 3.8 g/dL (3.4-5.0); ALKALINE PHOSPHATASE 108 U/L (46-116); ASPARTATE AMINOTRANSFERASE 23 U/L (15-37); BILIRUBIN,DIRECT 0.1 mg/dL (0.0-0.2); BILIRUBIN,TOTAL 0.5 mg/dL (0.2-1.0); TOTAL PROTEIN, SERUM 7.5 g/dL (6.4-8.2)
[2017-12-17 12:59] LABS: TROPONIN I < 0.017 ng/mL (0.00-0.056)
--- NOTE | 2017-12-17 13:03 | NUR ---
CALLED , TRANSFERRED CALL TO
--- NOTE | 2017-12-17 13:20 | NUR ---
IV removed. Catheter intact and site benign. Pressure and 4x4 applied to site. No bleeding noted. Patient discharged to home in stable condition. Written and verbal after care instructions given. Patient verbalizes understanding of instruction.
[2017-12-17 13:22] VITALS: BP 152/84
== END 2017-12-17 13:22 | disposition home or self-care (01) ==
LOC: ER 12:04
DX: S00.83XA Contusion of other part of head, initial encounter (principal); I10 Essential (primary) hypertension; I25.10 Atherosclerotic heart disease of native coronary artery without angina pectoris; G35 Multiple sclerosis; Z88.1 Allergy status to other antibiotic agents; Z95.818 Presence of other cardiac implants and grafts; W01.0XXA Fall on same level from slipping, tripping and stumbling without subsequent striking against object, initial encounter; Y93.89 Activity, other specified; Y92.89 Other specified places as the place of occurrence of the external cause; Y99.8 Other external cause status
CPT/HCPCS: 36415; 71045; 80048; 80076; 83605; 84484; 85025; 85730; 87040 ×2; 93005; 99285; A4606; Z7610

== ENCOUNTER 2018-03-18 17:08 | Emergency (ER) | payer MEDICARE, OTHER ==
[~2018-03-18] VITALS: Ht 175.3 cm; Wt 90.7 kg
[~2018-03-18 17:08] MED LIST changes: -OXCA300T PO; +OXCA300T15 PO
--- NOTE | 2018-03-18 17:26 | NUR ---
BIB SELF, PATIENT COMLAINT OF LEFT SHOULDER PAIN, PER PATIENT HE TRIPPED AND FELL. PATIENT IS ALERT AND ORIENTED X 4, VERBALLY RESPONSIVE. ON ROOM AIR AND TOLERATED WELL. KEPT PATIENT COMFORTABLE IN BED. WILL CONTINUE TO MONITOR ACCORDINGLY.
[2018-03-18] MEDS ORDERED: ONDANSETRON HCL/PF 4 MG/2 ML VIAL IVP ONE (17:30)
[2018-03-18] MEDS ORDERED: IV NS 0.9% 500 ML BAG IV ONE (17:30)
[2018-03-18] MEDS ORDERED: MORPHINE SULFATE INJ 2 MG/ML DISP.SYRIN IV ONE (17:30)
--- NOTE | 2018-03-18 17:30 | NUR ---
DR. COX AT BEDSIDE FOR EVAL.
[2018-03-18 17:36] LABS: BASOPHILS % (AUTO) 0.1 % (0.0-2.0); EOSINOPHILS % (AUTO) 1.1 % (0.0-6.0); HEMATOCRIT 40 % (39-51); HEMOGLOBIN 13.4 g/dL (13.5-17.5); LYMPHOCYTES # (AUTO) 0.9 /CMM (0.8-4.8); LYMPHOCYTES % (AUTO) 13.1 % (20.0-44.0); MEAN CORPUSCULAR HGB CONC 34 g/dl (31.0-36.0); MEAN CORPUSCULAR VOLUME 97 fL (80-96); MONOCYTES # (AUTO) 0.4 /CMM (0.1-1.30); MONOCYTES % (AUTO) 5.8 % (2.0-12.0); NEUTROPHILS # (AUTO) 5.6 /CMM (1.8-8.9); NEUTROPHILS % (AUTO) 79.9 % (43.0-81.0); PLATELET COUNT (AUTO) 271 /CMM (150-450); RDW COEFFICIENT OF VARIATION 13.2 (11.5-15.0); RED BLOOD CELL COUNT(AUTO) 4.12 MIL/uL (4.5-6.0)
[2018-03-18] MEDS ORDERED: ONDANSETRON HCL/PF 4 MG/2 ML VIAL ONE (17:36)
[2018-03-18] MEDS ORDERED: MORPHINE SULFATE INJ 4 MG/ML DISP.SYRIN ONE (17:36)
--- NOTE | 2018-03-18 17:43 | NUR ---
FRAME TABLE OPERATOR HELPER AT BEDSIDE FOR X-RAY.
[2018-03-18 17:45] LABS: CALCIUM, SERUM 8.9 mg/dL (8.5-10.1); CARBON DIOXIDE 29 mmol/L (21-32); CHLORIDE 102 mmol/L (98-107); CREATININE 1.1 mg/dL (0.6-1.3); GLUCOSE 120 mg/dL (74-106); SODIUM SERUM 137 mmol/L (136-145); UREA NITROGEN, BLOOD 16 mg/dL (7-18)
--- NOTE | 2018-03-18 17:57 | NUR ---
[employer] TECH CAME AND PICKED UP THE PATIENT GOING FOR CT SCAN.
--- NOTE | 2018-03-18 19:44 | NUR ---
Patient discharged to home in stable condition. Written and verbal after care instructions given. Patient verbalizes understanding of instruction. IV removed. Catheter intact and site benign. Pressure and 4x4 applied to site. No bleeding noted. Pt ambulatory with a steady gait
[2018-03-18 19:45] VITALS: BP 144/81
== END 2018-03-18 20:01 | disposition home or self-care (01) ==
LOC: ER 17:11
DX: S42.252A Displaced fracture of greater tuberosity of left humerus, initial encounter for closed fracture (principal); G35 Multiple sclerosis; Z95.5 Presence of coronary angioplasty implant and graft; Z95.1 Presence of aortocoronary bypass graft; Z88.1 Allergy status to other antibiotic agents; W01.0XXA Fall on same level from slipping, tripping and stumbling without subsequent striking against object, initial encounter; Y93.89 Activity, other specified; Y92.89 Other specified places as the place of occurrence of the external cause; Y99.8 Other external cause status
CPT/HCPCS: 36415; 70450; 70490; 71045; 73030; 80048; 85025; 96374; 96375; 99285; A4606; J2270; J2405; Z7610

== ENCOUNTER 2018-05-05 13:26 | Emergency (ER) | payer MEDICARE, OTHER ==
[~2018-05-05] VITALS: Ht 182.9 cm; Wt 69.9 kg
[2018-05-05 13:59] LABS: BASOPHILS # (AUTO) 0.1 /CMM (0.0-0.2); BASOPHILS % (AUTO) 1.2 % (0.0-2.0); EOSINOPHILS % (AUTO) 2.8 % (0.0-6.0); HEMATOCRIT 39 % (39-51); HEMOGLOBIN 13.4 g/dL (13.5-17.5); LYMPHOCYTES # (AUTO) 1.1 /CMM (0.8-4.8); LYMPHOCYTES % (AUTO) 26.3 % (20.0-44.0); MEAN CORPUSCULAR HGB CONC 34 g/dl (31.0-36.0); MEAN CORPUSCULAR VOLUME 100 fL (80-96); MONOCYTES # (AUTO) 0.4 /CMM (0.1-1.30); MONOCYTES % (AUTO) 9.3 % (2.0-12.0); NEUTROPHILS # (AUTO) 2.4 /CMM (1.8-8.9); NEUTROPHILS % (AUTO) 60.4 % (43.0-81.0); PLATELET COUNT (AUTO) 186 /CMM (150-450); RED BLOOD CELL COUNT(AUTO) 3.93 MIL/uL (4.5-6.0)
[2018-05-05 14:19] LABS: CALCIUM, SERUM 8.9 mg/dL (8.5-10.1); CARBON DIOXIDE 28 mmol/L (21-32); CHLORIDE 102 mmol/L (98-107); CREATININE 0.9 mg/dL (0.6-1.3); GLUCOSE 108 mg/dL (74-106); POTASSIUM 4.6 mmol/L (3.5-5.1); SODIUM SERUM 138 mmol/L (136-145); UREA NITROGEN, BLOOD 15 mg/dL (7-18)
[2018-05-05] MEDS ORDERED: ONDANSETRON HCL/PF 4 MG/2 ML VIAL IVP PRN (15:00)
[2018-05-05] MEDS ORDERED: NITROGLYCERIN 0.4 MG/TAB BOTTLE SL PRN (15:00)
[2018-05-05] MEDS ORDERED: MORPHINE SULFATE INJ 2 MG/ML DISP.SYRIN IV PRN (15:00)
[2018-05-05] MEDS ORDERED: MAGNESIUM HYDROXIDE 30 ML UDC PO PRN (15:00)
[2018-05-05] MEDS ORDERED: MAG HYDROX/AL HYDROX/SIMETH 30 ML UDC PO PRN (15:00)
[2018-05-05] MEDS ORDERED: ACETAMINOPHEN 325 MG TABLET PO PRN (15:00)
[2018-05-05] MEDS ORDERED: ZOLPIDEM TARTRATE 5 MG TABLET PO PRN (15:00)
[2018-05-05] MEDS ORDERED: HYDROCODONE/APAP 5/325MG 1 EACH TABLET PO PRN (15:00)
[2018-05-05] MEDS ORDERED: Z GUARD REMEDY 2 OZ OINT TP PRN (15:00)
[2018-05-05 16:42] VITALS: BP 165/90
--- NOTE | 2018-05-05 16:44 | NUR ---
For discharge- ACI given verbalized understanding Home ambulatory in stable condition Denies any pain
[2018-05-05] MEDS ORDERED: OXCARBAZEPINE 150 MG TABLET PO SCH (17:00)
[2018-05-05] MEDS ORDERED: BACLOFEN (10 MG) 10 MG TABLET PO SCH (17:00)
[2018-05-05] MEDS ORDERED: ATORVASTATIN 40 MG TABLET PO SCH (22:00)
[2018-05-06] MEDS ORDERED: LEVOTHYROXINE SODIUM 100 MCG TABLET PO SCH (07:30)
[2018-05-06] MEDS ORDERED: FINASTERIDE (5 MG) 5 MG TABLET PO SCH (09:00)
[2018-05-06] MEDS ORDERED: ASPIRIN EC 81 MG TABLET.DR PO SCH (09:00)
== END 2018-05-05 16:47 | disposition home or self-care (01) ==
LOC: ER 13:28
DX: R07.89 Other chest pain (principal); G35 Multiple sclerosis; I10 Essential (primary) hypertension; I25.10 Atherosclerotic heart disease of native coronary artery without angina pectoris; Z95.1 Presence of aortocoronary bypass graft; Z95.5 Presence of coronary angioplasty implant and graft; Z88.1 Allergy status to other antibiotic agents
CPT/HCPCS: 36415; 71045-TC; 80048-TC; 83735-TC; 83880; 84484-TC; 85025-TC; 85730-TC; 93307-TC; A4606; Z7610